=== PATIENT | female | born 2000 | race Caucasian/White ===

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

== ENCOUNTER 2025-01-03 01:22 | Emergency (ER) | payer MEDICAID, SELFPAY ==
[2025-01-03 01:26] VITALS: BP 118/75; PULSE 83; RESP 16; TEMP 36.8; O2SAT 99; BMI 25.9
[2025-01-03] MEDS: Lidocaine 2% Viscous15 ML UDC 10 ML PO (01:42)
[2025-01-03] MEDS: dexAMETHasone 10 MG/ML Vial PO.IVFORM (01:42)
[2025-01-03] MEDS: Famotidine 20 MG Tablet 40 MG PO (01:43)
--- OUTSIDE RECORDS SUMMARY | 2025-01-03 01:53 | XMS RPT_ITS | CCD ---
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 No underlying bone lesions are seen. The joint spaces appear normal. There are no periarticular calcifications. IMPRESSION: Normal right wrist. No fracture. Carbonation Equipment Operator: [facility] Transcribe Date/Time: Jan 09 2023 4:52P Dictated by : CORAZON MARAVILLA MD - continue to wear wrist splint. - you may take tylenol or ibuprofen for pain. Subha Vargas APRN.CNP SPRAINS / STRAINS GENERAL INFORMATION: A sprain is when the ligaments of a joint are stretched and injured. A strain is when a muscle is overstretched and some fibers are torn. These injuries can take several weeks to heal. INSTRUCTIONS: 1. To minimize swelling, keep the injured limb above the level of your heart as much as possible. If it is your leg that is injured, elevate it on some pillows whenever you are sitting or lying down. 2. Apply ice to the injury for 15 minutes each hour for the first two days. Put the ice in a plastic bag and place a thin towel between the bag of ice and you (more content not included)... Normal [facility] XR WRIST 3V PA/LAT/OBL RTon 01-09-2023 XR WRIST 3V PA/LAT/OBL RT * * *Final Report* * * DATE OF EXAM: Jan 09 2023 4:48PM WOX [id number] - XR WRIST 3V PA/LAT/OBL RT / PROCEDURE REASON: Wrist injury, right, initial encounter * * * * Physician Interpretation * * * * RIGHT WRIST, 3 VIEWS, 01/09/2023 HISTORY: Injury. Ulnar sided wrist pain. COMPARISON: None TECHNIQUE: AP, lateral, and oblique views. RESULTS: The bones appear intact and normally aligned. No underlying bone lesions are seen. The joint spaces appear normal. There are no periarticular calcifications. IMPRESSION: Normal right wrist. No fracture. Carbonation Equipment Operator: [facility] Transcribe Date/Time: Jan 09 2023 4:52P Dictated by : CORAZON MARAVILLA MD This examination was interpreted and the report reviewed and electronically signed by: CORAZON MARAVILLA MD on Jan 09 2023 4:53PM EST [id number] Normal [facility] XR Wrist - right PA and Late ral and Obliqueon 01-09-2023 IMPRESSION: Normal right wrist. No fracture. Carbonation Equipment Operator: [facility] Transcribe Date/Time: Jan 09 2023 4:52P Dictated by : CORAZON MARAVILLA MD This examination was interpreted and the report reviewed and electronically signed by: CORAZON MARAVILLA MD on Jan 09 2023 4:53PM EST DIVISION OF RADIOLOGY * * *Final Report* * * DATE OF EXAM: Jan 09 2023 4:48PM WOX [id number] - XR WRIST 3V PA/LAT/OBL RT / PROCEDURE REASON: Wrist injury, right, initial encounter * * * * Physician Interpretation * * * * RIGHT WRIST, 3 VIEWS, 01/09/2023 HISTORY: Injury. Ulnar sided wrist pain. COMPARISON: None TECHNIQUE: AP, lateral, and oblique views. RESULTS: The bones appear intact and normally aligned. No underlying bone lesions are seen. The joint spaces appear normal. There are no periarticular calcifications. DIVISION OF RADIOLOGY Provider, [facility] - 01/09/2023 * * *Final Report* * * DATE OF EXAM: Jan 09 2023 4:48PM WOX 5271 - XR WRIST 3V PA/LAT/OBL RT / PROCEDURE REASON: Wrist injury, right, initial encounter * * * * Physician Interpretation * * * * RIGHT WRIST, 3 VIEWS, 01/09/2023 HISTORY: Injury. Ulnar sided wrist pain. COMPARISON: None TECHNIQUE: AP, lateral, and oblique views. RESULTS: The bones appear intact and normally aligned. No underlying bone lesions are seen. The joint spaces appear normal. There are no periarticular calcifications. IMPRESSION IMPRESSION: Normal right wrist. No fracture. Carbonation Equipment Operator: [facility] Transcribe Date/Time: Jan 09 2023 4:52P Dictated by : CORAZON MARAVILLA MD This examination was interpreted and the report reviewed and electronically signed by: CORAZON MARAVILLA MD on Jan 09 2023 4:53PM EST [facility] Radiology Study [facility] (narrative) [facility] - right PA and Late ral and ObliqueOrdered By: Ccf Provider on 01-09-2023 [facility] FOOT GENERAL 3V AP/LAT/OB L RIGHTon 05-15-2022 [facility] Foot - right AP and Later al and obliqueon 05-15-2022 IMPRESSION: No radiographic evidence of acute osseous injury Carbonation Equipment Operator: [facility] Transcribe Date/Time: May 15 2022 1:39P Dictated by : BERTHA ORTEZ MD This examination was interpreted and the report reviewed and electronically signed by: BERTHA ORTEZ MD on May 15 2022 1:44PM [facility] DIVISION OF RADIOLOGY * * *Final Report* * * DATE OF EXAM: May 15 2022 1:27PM WOX 5337 - XR FOOT 3V AP/LAT/OBL RT / PROCEDURE REASON: Foot pain, right * * * * Physician Interpretation * * * * CLINICAL INDICATION: Pain TECHNIQUE: 3 view radiographic study of the right foot COMPARISON: None FINDINGS: No acute fracture or dislocation. Hallux valgus deformity. DIVISION OF RADIOLOGY Provider, [facility] - 05/15/2022 * * *Final Report* * * DATE OF EXAM: May 15 2022 1:27PM WOX 5337 - XR FOOT 3V AP/LAT/OBL RT / PROCEDURE REASON: Foot pain, right * * * * Physician Interpretation * * * * CLINICAL INDICATION: Pain TECHNIQUE: 3 view radiographic study of the right foot COMPARISON: None FINDINGS: No acute fracture or dislocation. Hallux valgus deformity. IMPRESSION IMPRESSION: No radiographic evidence of acute osseous injury Carbonation Equipment Operator: [facility] Transcribe Date/Time: May 15 2022 1:39P Dictated by : BERTHA ORTEZ MD This examination was interpreted and the report reviewed and electronically signed by: BERTHA ORTEZ MD on May 15 2022 1:44PM EST [facility] Radiology Study observation (narrative) [facility] XR Foot - right AP and Later al and obliqueOrdered By: Ccf Provider on 05-15-2022 [facility] Vital Signs Date Time Vital Sign Value Performing Clinician Faci lity 11-05-2023 08:57-0400 Body height 161.3 cm Mayra Kramer ACCOUNTING PROFESSIONAL.[employer] Work Phone: [facility] 11-05-2023 08:57-0400 Body mass index (BMI) [Ratio] 28.6 kg/m2 Mayra Kramer ACCOUNTING PROFESSIONAL.[employer] SUPER[employer] Work Phone: [facility] 11-05-2023 08:57-0400 Body temperature 98.91 [degF] Mayra Kramer ACCOUNTING PROFESSIONAL.[employer] SUPER[employer]OR Work Phone: [facility] 11-05-2023 08:57-0400 Body weight 74.39 kg Mayra Kramer ACCOUNTING PROFESSIONAL.[employer] SUPER[employer]OR Work Phone: [facility] 11-05-2023 08:57-0400 Diastolic blood pressure 60 mm[Hg] Mayra Kramer ACCOUNTING PROFESSIONAL.[employer] SUPER[employer]OR Work Phone: [facility] 11-05-2023 08:57-0400 Heart rate 106 /min Mayra Kramer ACCOUNTING PROFESSIONAL.[employer] SUPER[employer]OR Work Phone: [facility] 11-05-2023 08:57-0400 Respiratory rate 12 /min Mayra Kramer ACCOUNTING PROFESSIONAL.[employer] SUPER[employer] Work Phone: [facility] 11-05-2023 08:57-0400 SaO2% (BldA) [Mass fraction] 98 % Mayra Kramer ACCOUNTING PROFESSIONAL.[employer] SUPER[employer] Work Phone: [facility] 11-05-2023 08:57-0400 Systolic blood pressure 112 mm[Hg] Mayra Kramer ACCOUNTING PROFESSIONAL.[employer] SUPER[employer]OR Work Phone: [facility] 04-20-2023 14:49-0400 Body weight 73.03 kg Mayra Kramer ACCOUNTING PROFESSIONAL.[employer] SUPER[employer]OR Work Phone: [facility] 04-20-2023 14:49-0400 Diastolic blood pressure 75 mm[Hg] Mayra Kramer ACCOUNTING PROFESSIONAL.[employer] SUPER[employer]OR Work Phone: [facility] 04-20-2023 14:49-0400 Heart rate 109 /min Mayra Kramer ACCOUNTING PROFESSIONAL.[employer] SUPER[employer]OR Work Phone: [facility] 04-20-2023 14:49-0400 Respiratory rate 16 /min Mayra Kramer ACCOUNTING PROFESSIONAL.[employer] SUPER[employer]OR Work Phone: [facility] 04-20-2023 14:49-0400 Systolic blood pressure 115 mm[Hg] Mayra Kramer ACCOUNTING PROFESSIONAL.[employer] SUPER[employer]OR Work Phone: [facility] 10-27-2022 13:10-0400 Body weight 77.11 kg Mayra Kramer ACCOUNTING PROFESSIONAL.[employer] SUPER[employer]OR Work Phone: [facility] 10-27-2022 13:10-0400 Diastolic blood pressure 72 mm[Hg] Mayra Kramer ACCOUNTING PROFESSIONAL.[employer] SUPER[employer]OR Work Phone: [facility] 10-27-2022 13:10-0400 Heart rate 100 /min Mayra Kramer ACCOUNTING PROFESSIONAL.[employer] SUPER[employer]OR Work Phone: [facility] 10-27-2022 13:10-0400 Respiratory rate 16 /min Mayra Kramer ACCOUNTING PROFESSIONAL.[employer] SUPER[employer]OR Work Phone: [facility] 10-27-2022 13:10-0400 Systolic blood pressure 110 mm[Hg] Mayra Kramer ACCOUNTING PROFESSIONAL.[employer] SUPER[employer]OR Work Phone: [facility] 07-06-2022 08:32-0500 Body weight 82.1 kg Mayra Kramer ACCOUNTING PROFESSIONAL.[employer] SUPER[employer] Work Phone: [facility] 07-06-2022 08:32-0500 Diastolic blood pressure 70 mm[Hg] Mayra Kramer ACCOUNTING PROFESSIONAL.[employer] SUPER[employer]OR Work Phone: [facility] 07-06-2022 08:32-0500 Heart rate 94 /min Amyra Kramer ACCOUNTING PROFESSIONAL.[employer] SUPER[employer]OR Work Phone: [facility] 07-06-2022 08:32-0500 Respiratory rate 16 /min Mayra Kramer ACCOUNTING PROFESSIONAL.[employer] SUPER[employer]OR Work Phone: [facility] 07-06-2022 08:32-0500 SaO2% (BldA) [Mass fraction] 98 % Mayra Kramer ACCOUNTING PROFESSIONAL.[employer] SUPER[employer]OR Work Phone: [facility] 07-06-2022 08:32-0500 Systolic blood pressure 104 mm[Hg] Mayra Kramer ACCOUNTING PROFESSIONAL.[employer] SUPER[employer]OR Work Phone: [facility] 05-15-2022 13:07-0400 Body temperature 98.91 [degF] Melodie Bogner PA-C Work Phone: [facility] 05-15-2022 13:07-0400 Body weight 82.56 kg Melodie Bogner PA-C Work Phone: [facility] 05-15-2022 13:07-0400 Diastolic blood pressure 68 mm[Hg] Melodie Bogner PA-C Work Phone: [facility] 05-15-2022 13:07-0400 Heart rate 100 /min Melodie Bogner PA-C Work Phone: [facility] 05-15-2022 13:07-0400 Respiratory rate 16 /min Melodie Bogner PA-C Work Phone: [facility] 05-15-2022 13:07-0400 SaO2% (BldA) [Mass fraction] 96 % Melodie Bogner PA-C Work Phone: [facility] 05-15-2022 13:07-0400 Systolic blood pressure 110 mm[Hg] Melodie Bogner PA-C Work Phone: [facility] Encounters Encounter Date Encounter Type Care Provider Facility Start: 12-01-2024 End: 12-02-2024 Refill Marko Khan MD Work Phone: [facility] [place] Comment on above: Refill Request Start: 11-05-2023 End: 11-05-2023 ambulatory MARKO KHAN Facility:[facility] Start: 11-05-2023 End: 11-05-2023 Office outpatient visit 25 minutes Mayra Kramer ACCOUNTING PROFESSIONAL.[employer]PER[employer]OR Work Phone: [facility] [place] Comment on above: ADHD (attention defi cit hyperactivity disorder), combined type (Primary Dx); Screening for cervical cancer; Chronic low back pain, unspecified back pain laterality, unspecified whether sciatica present; Abdominal discomfort Start: 09-13-2023 Refill Marko fagan MD Work Phone: [facility] [place] Comment on above: Refill Request Start: 05-31-2023 Refill Marko fagan MD Work Phone: [facility] [place] Comment on above: Refill Request Start: 04-20-2023 End: 04-21-2023 ambulatory [facility] Facility:[facility] Start: 04-20-2023 End: 04-20-2023 Office outpatient visit 25 minutes Mayra Kramer ACCOUNTING PROFESSIONAL.[employer]PER[employer] Work Phone: [facility] [place] Comment on above: ADHD (attention defi cit hyperactivity disorder), combined type (Primary Dx); Screening for STD (sexually transmitted disease); Encounter for immunization; Screening for cervical cancer; Attention deficit hyperactivity disorder (ADHD), combined type; Right wrist pain Start: 02-28-2023 Refill Marko fagan MD Work Phone: [facility] [place] Comment on above: Refill Request Start: 01-09-2023 End: 01-09-2023 ambulatory [facility] Facility:[facility] Start: 01-09-2023 End: 01-09-2023 Subsequent hospital visit by physician Denia [facility] Work Phone: Radiology Comment on above: Wrist injury, right, initial encounter [S69.91XA] Start: 10-27-2022 End: 10-27-2022 Office outpatient visit 15 minutes Mayra Kramer ACCOUNTING PROFESSIONAL.[employer] Work Phone: [facility] [place] Comment on above: ADHD (attention defi cit hyperactivity disorder), combined type (Primary Dx); Screening for cervical cancer; Chronic low back pain, unspecified back pain laterality, unspecified whether sciatica present; Need for vaccination; Generalized anxiety disorder with panic attacks; Pain of upper abdomen Start: 10-16-[address] [employer] Work Phone: [facility] [place] Comment on above: Refill Request Rx refill; not on cu rrent med list Start: 09-13-2022 Telephone encounter Marko dow MD Work Phone: [facility] [place] Comment on above: Rx refill; not on cu rrent med list Refill Request Start: 08-17-2022 Refill Marko fagan MD Work Phone: [facility] [place] Comment on above: Refill Request Start: 08-05-2022 Refill Marko fagan MD Work Phone: [facility] [place] Comment on above: Refill Request Start: 07-06-2022 End: 07-06-2022 Office outpatient visit 25 minutes Mayra Kramer APRN.[employer]PER[employer] Work Phone: [facility] [place] Comment on above: Chronic low back starr n, unspecified back pain laterality, unspecified whether sciatica present (Primary Dx) Start: 05-15-2022 End: 05-15-2022 Subsequent hospital visit by physician Xr [facility] Work Phone: Radiology Comment on above: Foot pain, right [M7 9.671] Start: 05-15-2022 End: 05-15-2022 Office outpatient visit 15 minutes Melodie BELLA-C Work Phone: [facility] Comment on above: Foot pain, right (Pr imary Dx) Start: 12-22-2021 Telephone encounter Mayra stephenson ACCOUNTING PROFESSIONAL.[employer]PER[employer] Work Phone: [facility] [place] Comment on above: Results, Lab Start: 01-02-2018 End: 01-02-2018 Ambulatory PEGGY B CLAUDIA [facility] Procedures Date Procedure Procedure Detail Performing Clinician Start: 11-05-2023 Adult depression screening assessment Xr [facility] Work Phone: Start: 01-09-2023 Radex wrist complete minimum 3 views Subha Vargas APRN.[employer] TE[employer]BER Work Phone: Start: 05-15-2022 Radex foot complete minimum 3 views Melodie BELLA-C Work Phone: Start: 12-09-2021 Adult depression screening assessment Mayra Kramer APRN.CNS Work Phone: Plan of Treatment Date Care Activity Detail Author Start: 03-16-2025 Influenza vaccination Influenz a Vaccine (Season Ended) [facility] Start: 11-04-2024 Depression Screening Depression Scre ening [facility] Start: 05-14-2024 End: 05-14-2024 Patient encounter procedure 05/14/2024 3:40 PM EDT Office Visit [facility] [place] [address] [place], [place] [id number] Marko Khan MD [address] [place], [place] [address] 6 month follow up [facility] [place] Comment on above: 6 month follow up Start: 03-16-2024 Covid-19 Vaccine ( season) Covid-19 Vaccine ( season) [facility] Start: 03-16-2024 Covid-19 Vaccine ( season) Covid-19 Vaccine ( season) [facility] Start: 03-16-2024 Influenza vaccination [facility] Start: 12-20-2023 End: 12-20-2023 Patient encounter procedure 12/20/2023 2:40 PM EDT Office Visit OB/Gynecology [address] [place], [place] [id number] Meliza Laguerre MD [address] [facility] [place] [address] Screening for cervical cancer [Z12.4] OB/Gynecology Comment on above: Screening for cervic al cancer [Z12.4] Start: 11-27-2023 Urine microalbumin profile [facility] Start: 07-16-2023 Depression Assessment Depression Ass essment [facility] Start: 04-20-2023 End: 06-20-2023 Chlamydia trachomatis+Neisseria gonorrhoeae DNA [Presence] in Unspecified specimen by ARON with probe detection GONORRHEA/CHLAMYDIA NAAT Lab Routine Screening for STD (sexually transmitted disease) Expected: 04/20/2023, Expires: 06/20/2023 [facility] Work Phone: Comment on above: Expected: 04/20/2023 , Expires: 06/20/2023 Start: 04-20-2023 End: 06-20-2023 TOX SCREEN ROUT UR TOX SCREEN ROUT UR Lab Routine Attention deficit hyperactivity disorder (ADHD), combined type Expected: 04/20/2023, Expires: 06/20/2023 [facility] Work Phone: Comment on above: Expected: 04/20/2023 , Expires: 06/20/2023 Start: 03-16-2023 Covid-19 Vaccine () Covid-19 Vaccine () [facility] Start: 03-16-2023 Influenza vaccination [facility] Start: 01-26-2023 End: 03-28-2023 TOX SCREEN ROUT UR TOX SCREEN ROUT UR Lab Routine ADHD (attention deficit hyperactivity disorder), combined type Expected: 01/26/2023 (Approximate), Expires: 03/28/2023 [facility] Work Phone: Comment on above: Expected: 01/26/2023 (Approximate), Expires: 03/28/2023 Start: 12-09-2022 Adult depression screening assessment DEPRESSION SCREENING [facility] Start: 12-09-2022 CHLAMYDIA SCREENING (18-24) CHLAMYDIA SCREENING (18-24) [facility] Comment on above: Postponed from 07/05 (Postponed - Not Clinically Indicated) Start: 12-09-2022 GC (GONORRHEA) SCREE CHACHA (18-24) GC (GONORRHEA) SCREENING (18-24) [facility] Comment on above: Postponed from 07/05 (Postponed - Not Clinically Indicated) Start: 07-16-2022 DEPRESSION ASSESSMENT DEPRESSION ASS ESSMENT [facility] Start: 2022 PAP TESTING PAP TESTING [facility] Start: 2022 Screening for malign ant neoplasm of cervix [facility] Start: 03-16-2022 Influenza vaccination [facility] Start: 08-24-2021 COVID-19 VACCINE (3 - Booster for Pfizer series) COVID-19 VACCINE (3 - Booster for Pfizer series) [facility] Start: 07-16-2021 DEPRESSION ASSESSMENT DEPRESSION ASS ESSMENT [facility] Start: 05-19-2021 COVID-19 VACCINE (3 - Booster for Pfizer series) COVID-19 VACCINE (3 - Booster for Pfizer series) [facility] Start: 05-19-2021 COVID-19 VACCINE (3 - Pfizer series) COVID-19 VACCINE (3 - Pfizer series) [facility] Start: 2019 CHLAMYDIA SCREENING () CHLAMYDIA SCREENING () [facility] Start: 2019 GC (GONORRHEA) SCREE CHACHA () GC (GONORRHEA) SCREENING () [facility] Start: 2019 Screening for Chlamy steve trachomatis Chlamydia Screening () [facility] Start: 2017 Meningococcal B Vacc ine (1 of 2 - Standard) Meningococcal B Vaccine (1 of 2 - Standard) [facility] Start: 2017 Meningococcal B Vacc ine: Consider Based On Risk (1 of 2 - Patient Seeks Protection) Meningococcal B Vaccine: Consider Based On Risk (1 of 2 - Patient Seeks Protection) [facility] Start: 2017 MENINGOCOCCAL B: Consider based on risk (1 of 2 - Patient Seeks Protection) MENINGOCOCCAL B: Consider based on risk (1 of 2 - Patient Seeks Protection) [facility] Start: 2011 MENINGOCOCCAL B: Consider based on risk (1 of 2 - Risk Bexsero 2-dose series) MENINGOCOCCAL B: Consider based on risk (1 of 2 - Risk Bexsero 2-dose series) [facility] INFLUENZA VACCINE, A GE 6 MO - 64 YR, QUADRIVALENT (AFLURIA, FLULAVAL, FLUZONE) INFLUENZA VACCINE, AGE 6 MO - 64 YR, QUADRIVALENT (AFLURIA, FLULAVAL, FLUZONE) Immunization/Injection Routine Encounter for immunization Ordered: 04/20/2023 [facility] Work Phone: Comment on above: Ordered: 04/20/2023 MENINGOCOCCAL B VACC INE (BEXSERO) MENINGOCOCCAL B VACCINE (BEXSERO) Immunization/Injection Routine Need for vaccination Ordered: 10/27/2022 [facility] Work Phone: Comment on above: Ordered: 10/27/2022 [employer] COVI D-19 VACCINE ( SEASON) AGE 12+ YR PFIZER-BIONTECH COVID-19 VACCINE ( SEASON) AGE 12+ YR Immunization/Injection Routine Encounter for immunization 1 Occurrences starting 04/20/2023 [facility] Work Phone: Comment on above: 1 Occurrences starti ng 04/20/2023 Tdap vaccine 7 yrs/> im TDAP VAC CINE, AGE 7+ YR (ADACEL, BOOSTRIX) Immunization/Injection Routine Ordered: 11/05/2023 [facility] Work Phone: Comment on above: Ordered: 11/05/2023 [facility] Immun[facility] Immunization Date Immunization Notes Care Provider Magui candelario 05-20-2019 influenza, injectabl e, quadrivalent, preservative free Mayra Kramer ACCOUNTING PROFESSIONAL.[employer]PER[employer] Work Phone: [facility] 05-20-2019 influenza virus vaccine, unspecified formulation Mayra Kramer ACCOUNTING PROFESSIONAL.[employer] SUPER[employer]OR Work Phone: [facility] 08-30-2018 influenza, injectabl e, quadrivalent, preservative free Mayra Kramer ACCOUNTING PROFESSIONAL.[employer] SU[employer] Work Phone: [facility] 01-15-2018 meningococcal polysaccharide (groups A, C, Y and W-135) diphtheria toxoid conjugate vaccine (MCV4P) Mayra Kramer ACCOUNTING PROFESSIONAL.[employer] SUPER[employer] Work Phone: [facility] Work Phone: 04-07-2016 influenza, injectabl e, quadrivalent, contains preservative Mayra Kramer ACCOUNTING PROFESSIONAL.[employer] SUPER[employer]OR Work Phone: [facility] Work Phone: 02-08-2015 human papilloma viru s vaccine, quadrivalent Mayra Kramer ACCOUNTING PROFESSIONAL.[employer] SU[employer] Work Phone: [facility] 05-04-2014 influenza, live, intranasal, quadrivalent Mayra Kramer ACCOUNTING PROFESSIONAL.[employer] SUPER[employer] Work Phone: [facility] [facility] 01-26-2014 human papilloma viru s vaccine, quadrivalent Mayra Kramer ACCOUNTING PROFESSIONAL.[employer] SUPER[employer] Work Phone: [facility] Work Phone: 11-26-2013 human papilloma viru s vaccine, quadrivalent Mayra Kramer ACCOUNTING PROFESSIONAL.[employer] SUPERVISOR Work Phone: [facility] 11-26-2013 meningococcal polysaccharide (groups A, C, Y and W-135) diphtheria toxoid conjugate vaccine (MCV4P) Mayra Kramer ACCOUNTING PROFESSIONAL.[employer] SUPERVISOR Work Phone: [facility] 11-26-2013 tetanus toxoid, redu bryan diphtheria toxoid, and acellular pertussis vaccine, adsorbed Mayra Kramer ACCOUNTING PROFESSIONAL.[employer] SUPERVISOR Work Phone: [facility] 12-12-2011 hepatitis A vaccine, unspecified formulation Mayra Kramer ACCOUNTING PROFESSIONAL.[employer] SUPERVISOR Work Phone: [facility] 05-31-2010 influenza virus vaccine, live, attenuated, for intranasal use Mayra Kramer ACCOUNTING PROFESSIONAL.[employer] SUPERVISOR Work Phone: [facility] Work Phone: 06-01-2009 novel [id number], all formulations [facility] ACCOUNTING PROFESSIONAL.[employer] SUPERVISOR Work Phone: [facility] 04-17-2009 influenza virus vaccine, live, attenuated, for intranasal use Mayra Kramer ACCOUNTING PROFESSIONAL.[employer] SUPERVISOR Work Phone: [facility] Work Phone: 07-22-2008 hepatitis A vaccine, unspecified formulation Mayra Kramer ACCOUNTING PROFESSIONAL.[employer] SUPERVISOR Work Phone: [facility] Work Phone: 07-22-2008 influenza virus vaccine, live, attenuated, for intranasal use Mayra Kramer ACCOUNTING PROFESSIONAL.[employer] SUPERVISOR Work Phone: [facility] Work Phone: 07-19-2006 diphtheria, tetanus toxoids and acellular pertussis vaccine Mayra Kramer ACCOUNTING PROFESSIONAL.[employer] SUPERVISOR Work Phone: [facility] Work Phone: 07-19-2006 measles, mumps and rubella virus vaccine Mayra Kramer ACCOUNTING PROFESSIONAL.[employer] SUPERVISOR Work Phone: [facility] Work Phone: 07-19-2006 poliovirus vaccine, inactivated [facility] ACCOUNTING PROFESSIONAL.[employer] SUPERVISOR Work Phone: [facility] Work Phone: 07-19-2006 varicella virus vaccine [facility] ACCOUNTING PROFESSIONAL.[employer] SUPERVISOR Work Phone: [facility] Work Phone: 07-13-2003 diphtheria, tetanus toxoids and acellular pertussis vaccine [facility] ACCOUNTING PROFESSIONAL.[employer] SUPERVISOR Work Phone: [facility] Work Phone: 07-13-2003 haemophilus influenz ae type b vaccine, HbOC conjugate [facility] ACCOUNTING PROFESSIONAL.[employer] SUPERVISOR Work Phone: [facility] Work Phone: 07-13-2003 hepatitis B vaccine, pediatric or pediatric/adolescent dosage [facility] ACCOUNTING PROFESSIONAL.[employer] SUPERVISOR Work Phone: [facility] Work Phone: 07-28-2002 measles, mumps and rubella virus vaccine [facility] ACCOUNTING PROFESSIONAL.[employer] SUPERVISOR Work Phone: [facility] Work Phone: 07-28-2002 varicella virus vaccine [facility] ACCOUNTING PROFESSIONAL.[employer] SUPERVISOR Work Phone: [facility] Work Phone: 2002 hepatitis B vaccine, pediatric or pediatric/adolescent dosage [facility] ACCOUNTING PROFESSIONAL.[employer] SUPERVISOR Work Phone: [facility] Work Phone: 01-23-2002 diphtheria, tetanus toxoids and acellular pertussis vaccine [facility] ACCOUNTING PROFESSIONAL.[employer] SUPERVISOR Work Phone: [facility] Work Phone: 01-23-2002 haemophilus influenz ae type b vaccine, HbOC conjugate [facility] ACCOUNTING PROFESSIONAL.[employer] SUPERVISOR Work Phone: [facility] Work Phone: 01-23-2002 pneumococcal conjuga te vaccine, 7 valent Mayra Kramer ACCOUNTING PROFESSIONAL.[employer] SUPERVISOR Work Phone: [facility] 01-23-2002 poliovirus vaccine, inactivated Mayra Kramer ACCOUNTING PROFESSIONAL.[employer] SUPERVISOR Work Phone: [facility] Work Phone: 2001 diphtheria, tetanus toxoids and acellular pertussis vaccine Mayra Kramer ACCOUNTING PROFESSIONAL.[employer] SUPERVISOR Work Phone: [facility] Work Phone: 2001 diphtheria, tetanus toxoids and acellular pertussis vaccine, unspecified formulation Mayra Kramer ACCOUNTING PROFESSIONAL.[employer] SUPERVISOR Work Phone: [facility] Work Phone: 2001 haemophilus influenz ae type b vaccine,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 investigate or prosecute any alcohol or drug abuse patient.[facility] the event this information is protected by the Federal Confidentiality of Alcohol and Drug Abuse Patient Records regulations: The Federal rules restrict any use of the information to criminally investigate or prosecute any alcohol or drug abuse patient.[facility] the event this information is protected by the Federal Confidentiality of Alcohol and Drug Abuse Patient Records regulations: The Federal rules restrict any use of the information to criminally investigate or prosecute any alcohol or drug abuse patient.[facility] the event this information is protected by the Federal Confidentiality of Alcohol and Drug Abuse Patient Records regulations: The Federal rules restrict any use of the information to criminally investigate or prosecute any alcohol or drug abuse patient.[facility] the event this information is protected by the Federal Confidentiality of Alcohol and Drug Abuse Patient Records regulations: The Federal rules restrict any use of the information to criminally investigate or prosecute any alcohol or drug abuse patient.[facility] Reason for Visit (unrecogniz ed section and content) Reason Comments Results, Lab Reason Comments Pain (foot) right foot x 1 day Reason Comments Back Pain Rib and leg pain on right side x 2-3 weeks Abdominal Pain Under breast, right side for about 4 months Reason Onset Date Comments Refill Request 08/17/2022 Reason Comments Rx refill; not on current med list Reason Onset Date Comments Refill Request 09/13/2022 Reason Onset Date Comments Refill Request 10/16/2022 Reason Comments Follow Up Reason Onset Date Comments Refill Request 08/05/2022 Reason Onset Date Comments Refill Request 02/28/2023 Reason Comments Follow Up Pain R wrist x 2 months s een in Specialty Diagnoses / Procedures Referred By Tamika t Referred To Contact Diagnoses Screening for cervical cancer Procedures CONSULT TO AUTOMOBILE DESIGNER OFFICE/OUTPATIENT [facility] MDM 60-74 MINUTES Mayra Kramer, ACCOUNTING PROFESSIONAL.[employer] SUPER[employer] [address] [place] [address] Referral ID Status Reason Start Date Expiration Date V isits Requested Visits Authorized [id number] Closed PCP Requested Referral Auto-Generated Referral 10/27/2022 10/27/2023 1 1 Reason Onset Date Comments Refill Request 05/31/2023 Reason Onset Date Comments Refill Request 09/13/2023 Reason Comments Follow Up medication refills Reason Onset Date Comments Refill Request 12/01/2024 Care Teams (unrecognized sec tion and content) Rn Procedures Relationship Specialty Start Date End Date Marko Khan MD [address] [place], [place] [id number] PCP - General Internal Medicine 12/09/21 Rn Procedures Relationship Specialty Start Date End Date Marko Khan MD [address] [place], [place] [id number] PCP - General Internal Medicine 12/09/21 Rn Procedures Relationship Specialty Start Date End Date Marko Khan MD [facility] [place], [place] [id number] PCP - General Internal Medicine 12/09/21 Rn Procedures Relationship Specialty Start Date End Date Marko Khan MD [address] [place] [address] PCP - General Internal Medicine 12/09/21 Rn Procedures Relationship Specialty Start Date End Date Marko Khan MD [address] [facility] [place] [address] PCP - General Internal Medicine 12/09/21 Rn Procedures Relationship Specialty Start Date End Date Marko Khan MD [address] [place] [address] PCP - General Internal Medicine 12/09/21 Rn Procedures Relationship Specialty Start Date End Date Marko Khan MD [address] [place] [address] PCP - General Internal Medicine 12/09/21 Rn Procedures Relationship Specialty Start Date End Date Marko Khan MD [address] [place] [address] PCP - General Internal Medicine 12/09/21 Rn Procedures Relationship Specialty Start Date End Date Marko Khan MD [address] [place] [address] PCP - General Internal Medicine 12/09/21 Rn Procedures Relationship Specialty Start Date End Date Marko Khan MD [address] [place] [address] PCP - General Internal Medicine 12/09/21 Rn Procedures Relationship Specialty Start Date End Date Marko Khan MD [address] [place] [address] PCP - General Internal Medicine 12/09/21 Rn Procedures Relationship Specialty Start Date End Date Marko Khan MD [address] [place] [address] PCP - General Internal Medicine 12/09/21 Rn Procedures Relationship Specialty Start Date End Date Marko Khan MD [address] [facility] [place] [address] PCP - General Internal Medicine 12/09/21 Rn Procedures Relationship Specialty Start Date End Date Marko Khan MD [address] [place] [address] PCP - General Internal Medicine 12/09/21 Rn Procedures Relationship Specialty Start Date End Date Marko Khan MD [address] [place] [address] PCP - General Internal Medicine 12/09/21 Rn Procedures Relationship Specialty Start Date End Date Marko Khan MD [address] [place] [address] PCP - General Internal Medicine 12/09/21 Rn Procedures Relationship Specialty Start Date End Date Marko Khan MD [address] [place] [address] PCP - General Internal Medicine 12/09/21 Rn Procedures Relationship Specialty Start Date End Date Marko Khan MD [address] [place] [address] PCP - General Internal Medicine 12/09/21 Mayra Kramer APRN.[employer] [address] [place] [address] Product Manager Medical Device Internal Medicine 06/23/24 Breana Horton ACCOUNTING PROFESSIONAL.[employer] TEAM MEMBER [address] [place] [address] [facility] Internal Medicine 10/07/24 FOR RECORDS PERTAINING TO PATIENTS WHO ARE OR HAVE BEEN ENROLLED IN A CHEMICAL DEPENDENCY/SUBSTANCEABUSE PROGRAM, SOME INFORMATION MAY BE OMITTED. This clinical summary was aggregated from multiple sources. Caution should be exercised in using it in the provision of clinical care. This summary normalizes information from multiple sources, and as a consequence, information in this document may materially change the coding, format and clinical context of patient data. In addition, data may be omitted in some cases. CLINICAL DECISIONS SHOULD BE BASED ON THE PRIMARY CLINICAL RECORDS. [employer] [facility]. provides no warranty or guarantee of the accuracy or completeness of information in this document.
--- NOTE | 2025-01-03 02:02 | EDS_ITS ---
HPI History of Present Illness Chief Complaint: Allergic Reaction Informant: patient and EMS Narrative Narrative: Patient is a 24-year-old female with past ministry of GERD anxiety and ADHD. She states she was eating kiwi around 11:30 at night tonight. Shortly after doing so she began to feel like her throat was becoming swollen and itchy. She states she was concerned she was having allergic reaction and therefore called 911. EMS states when they arrived the patient is awake alert and oriented without signs of respiratory distress satting 98 to 100% on room air. Patient denies any rash associated with her symptoms and she states that there could be no other new exposure other than eating the kiwi. [facility] Medical History GERD (gastroesophageal reflux disease) Anxiety ADHD Home Medications ?Medication ?Instructions ?Recorded ?Last Taken ?Type bupropion HCl 150 mg 24 hr tablet, 150 mg PO DAILY Unknown History extended release cyclobenzaprine 10 mg tablet 10 mg PO QHS PRN PRN musc le spasm 01/03/25 Unknown History famotidine 20 mg tablet 20 mg PO QHS PRN 01/03/25 Un known History Allergy/AdvReac Type Severity Reaction Status Date / Time No Known Allergies Allergy Verified 01/03/25 01:24 Social History Smoking Status: Never smoker ROS [facility] ED Constitutional Constitutional ED: Denies chills or fever(s) Eyes Eyes: Denies change in vision ENT ENT ED: Reports sore throat Cardiovascular Cardiovascular: Denies chest pain, palpitations or racing heartbeat Respiratory/Chest Respiratory/Chest: Reports dyspnea; Denies cough Gastrointestinal Gastrointestinal: Denies abdominal pain, diarrhea, nausea or vomiting Musculoskeletal Musculoskeletal: Denies myalgias Integumentary Denies rash Neurologic Neurologic: Denies headache(s) Hematologic/Lymphatic Hematologic/Lymphatic: Denies easy bleeding or easy bruising Allergic/Immunologic Allergic/Immunologic ED: Denies mouth swelling, tongue swelling or urticaria EXAM Physical Exam Const Vital Signs: 01/03/25 01:26 01/03/25 01:30 Temperature 98.3 F Temperature Source Oral Pulse Rate 83 Respiratory Rate 16 Respiratory Effort Normal Non-Labored Respiratory Pattern Normal Blood Pressure 118/75 Blood Pressure Mean 89 Pulse Ox 99 Oxygen Delivery Method Room Air Positive well nourished and well developed General Appearance ED: well developed; Negative for pallor HEENT Reports moist mucous membranes HEENT Narrative: No tongue or lip swelling no oral lesions no airway edema or compromise No signs of angioedema or anaphylaxis No signs of infection noted in the posterior pharynx No change in voice no difficulty with secretions no trismus. Eyes PERRL and EOMs intact bilaterally General Eye ED: Negative for scleral icterus Neck supple Neck Narrative: No nuchal rigidity or meningeal signs No crepitance palpated Chest Wall palpation of chest normal Resp normal respiratory effort and clear to auscultation bilaterally Resp Narrative: Breath sounds are clear throughout without rales wheezes or rhonchi No nasal flaring retractions tachypnea or accessory muscle use Cardio regular rate and regular rhythm Extremity normal to inspection Extremity Narrative: No asymmetric edema no pitting edema negative Homans' sign bilaterally Neuro oriented x3, CN's II-XII intact bilaterally and no sensory deficits noted Sensorium / Orientation: alert Motor Exam: strength 5/5 throughout Psych Mood & Affect: anxious Skin no rashes or lesions noted Skin Narrative: Capillary refills less than 3 seconds No rash or urticaria noted General Skin Exam: Negative for jaundice or pallor MDM MDM MDM Narrative Medical decision making narrative: Patient arrived to the ER with stable vitals. She had no signs of angioedema or anaphylaxis. She states she believes she was having allergic reaction to kiwi but it has been almost 2 hours since her ingestion and by exam there is no signs of airway compromise. Therefore there is no need for emergent intubation. The patient does not have any systemic rash to correlate with a potential acute allergic reaction either. Also patient does not have a fever or reported sick symptoms to indicate this as a cause of her symptoms. With concern for an allergic reaction as a cause of her abnormal throat sensation I did elect to provide Decadron Pepcid and viscous lidocaine. Patient reports an allergy to Benadryl so this was avoided and without signs of angioedema or anaphylaxis I did not feel she warranted epinephrine. The patient was watched in the ER for roughly 1 hour. On reevaluation it is now been approximately 3 hours since her ingestion and potential allergic reaction. She remains free of urticaria or signs of angioedema or anaphylaxis. Therefore my concern that this would progress throughout the night is extremely low and there is no need for further intervention or observation in the ER and she is otherwise safe for discharge. History & Record Review Discussion w/independent historian: EMS personnel and Patient Discharge Plan Triage Chief Complaint: Allergic Reaction ED Provider: Darian Arnold Dx/Rx/DC Orders Clinical Impression: Allergic reaction, ADHD, Anxiety Instructions: ED General Allergic Reactions, ED Food Allergy Prescriptions: No Action cyclobenzaprine 10 mg tablet 10 mg PO QHS PRN PRN (Reason: muscle spasm) famotidine 20 mg tablet 20 mg PO QHS PRN bupropion HCl 150 mg tablet extended release 24 hr 150 mg PO DAILY Primary Care Provider: Bradley Hidalgo Referrals: Bradley Hidalgo MD [Primary Care Provider] - Activity Restrictions/Additional Instructions: Please avoid kiwi as this may have been the culprit behind your symptoms. At this time you have no signs of angioedema or anaphylaxis/airway compromise. Therefore there is no need for further observation in the ER as your chance to progressing to this is extremely low based on the onset of symptoms and the fact there is been no worsening 3 hours out. Follow-up with your family doctor to discuss potential outpatient allergy testing and return to the ER should you have any further concerns Print Language: Ukrainian Disposition Disposition: Home, Self Care
[2025-01-03 03:07] VITALS: BP 107/81; PULSE 77; RESP 18; TEMP 36.8; O2SAT 100
== END 2025-01-03 03:11 | disposition home or self-care (01) ==
PROVIDERS: Emergency Provider Emergency Medicine; PCP Family Medicine; Visit Provider Emergency Medicine
DX: T78.1XXA Other adverse food reactions, not elsewhere classified, initial encounter (principal); F41.9 Anxiety disorder, unspecified; F90.9 Attention-deficit hyperactivity disorder, unspecified type; Z79.899 Other long term (current) drug therapy
CPT/HCPCS: 99285